=== PATIENT | male | born 1960 | race Caucasian/White ===

== ENCOUNTER 2016-11-11 07:08 | Day surgery (SDC) | payer MEDICARE, OTHER ==
[~2016-11-11] VITALS: Ht 170.2 cm; Wt 67.0 kg
[~2016-11-11 07:08] MED LIST: BENAZEPRIL
[2016-11-11 08:07] VITALS: Ht 170.2 cm; Wt 67.0 kg
[2016-11-11] MEDS ORDERED: MIDAZOLAM 1 MG/ML 2 ML INJ ONE (08:12)
[2016-11-11] MEDS ORDERED: cholesterol med (08:27)
[2016-11-11] MEDS ORDERED: NEBI5TAB9 PO (08:27)
[2016-11-11] MEDS ORDERED: ASPI81TA3 PO (08:27)
[2016-11-11 08:46] VITALS: BP 138/88; PULSE 80; RESP 16
[2016-11-11 09:38] VITALS: BP 122/79; PULSE 68; RESP 12
--- NOTE | 2016-11-12 10:25 | GILP ---
DATE OF PROCEDURE: 11/11/2016 SURGEON: Marlee Ahumada MD. PROCEDURE PERFORMED: 1. Esophagogastroduodenoscopy and biopsy. 2. Colonoscopy and biopsy. PREOPERATIVE DIAGNOSES: 1. Abdominal pain. 2. Chronic heart burn. 3. Rectal bleeding. POSTOPERATIVE DIAGNOSES: 1. Reflux esophagitis with erosions. 2. Gastritis with erosions. 3. Gastric mucosal biopsies are taken for Helicobacter pylori test. 4. Colonoscopy all the way to cecum. 5. Small submucosal mass in the area of the appendix. Biopsies were taken for histopathology. 6. Nonspecific colitis of the sigmoid colon. Biopsies are taken for histopathology. 7. Small sigmoid colon polypoids, removed. 8. Internal hemorrhoids. INDICATION: The patient is a 56-year-old male who had upper abdominal pain and chronic heartburn not responding to therapy. The patient also had rectal bleeding. The patient was scheduled for endoscopy and colonoscopy for further evaluation. The procedures and possible complications were well explained to the patient. She understood and consented to the procedures. DESCRIPTION OF PROCEDURE: EGD: Under the influence anesthesia, the gastroscope was carefully introduced into the esophagus and the larynx, it was advanced to the stomach into the pylorus, into the duodenal bulb and descending duodenum. Findings of the esophagus: The patient had reflux esophagitis with erosions. Stomach: He had gastritis with erosions. Gastric mucosal biopsies were taken for H pylori test. Duodenum was normal. COLONOSCOPY: The colonoscope was carefully introduced in the rectum and under direct vision it was advanced all the way to the cecum. Findings: The patient had a small sub-mucosal mass in the area of the appendix and biopsies were taken for histopathology. He was noted to have nonspecific colitis in the sigmoid colon, and biopsies were taken. He also had a small sigmoid colon polyp and it was removed. He had internal hemorrhoids. He tolerated the procedures very well. There is no complications of the procedures. At the end of procedure. He was awake, with stable vital signs. He was discharged home to the care of his family. IMPRESSION: Please see postoperative diagnoses. PLAN: 1. Omeprazole 40 mg orally every day morning. 2. Anusol HC suppository every night. 3. Await histopathology report. 4. Screening colonoscopy in 10 years. Dictated By: MD PHI Wilkerson/arthur/da /Document#: [id number] CC: Marlee Ahumada MD;*[facility]*
== END 2016-11-11 10:40 | disposition home or self-care (01) ==
LOC: GIL 07:08
PROVIDERS: ATTEND Internal Medicine Gastroenterology
DX: K21.0 Gastro-esophageal reflux disease with esophagitis (principal); K29.70 Gastritis, unspecified, without bleeding; K63.5 Polyp of colon; K52.9 Noninfective gastroenteritis and colitis, unspecified; K64.8 Other hemorrhoids; K38.9 Disease of appendix, unspecified; K62.5 Hemorrhage of anus and rectum; I10 Essential (primary) hypertension; F17.200 Nicotine dependence, unspecified, uncomplicated; Z79.82 Long term (current) use of aspirin
CPT/HCPCS: 43239; 45380; J2250; 87081; 88305